=== PATIENT | male | born 1965 | race Two or more races ===

== ENCOUNTER → 2016-04-12 | Outpatient (CLI) | payer OTHER ==
[~2016-04-12] MED LIST: NO HOME MEDS; PHENERGAN25 MG PO
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
== END | disposition home or self-care (01) ==
LOC: CRAD 17:26
DX: M54.89 Other dorsalgia (principal); M51.36 Other intervertebral disc degeneration, lumbar region
CPT/HCPCS: 72050; 72110

== ENCOUNTER → 2016-04-28 | Outpatient (CLI) | payer OTHER ==
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
== END | disposition home or self-care (01) ==
LOC: CCAT 13:06
DX: S46.919D Strain of unspecified muscle, fascia and tendon at shoulder and upper arm level, unspecified arm, subsequent encounter (principal); M50.21 Other cervical disc displacement, high cervical region; M47.892 Other spondylosis, cervical region; M51.86 Other intervertebral disc disorders, lumbar region; M48.06 Spinal stenosis, lumbar region
CPT/HCPCS: 72125; 72131

== ENCOUNTER 2016-09-13 21:24 | Emergency (ER) | payer OTHER ==
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
== END 2016-09-13 23:30 | disposition home or self-care (01) ==
LOC: CFTX 21:24 → CED 21:24 → CFTX 22:18
DX: S46.912A Strain of unspecified muscle, fascia and tendon at shoulder and upper arm level, left arm, initial encounter (principal); M54.42 Lumbago with sciatica, left side; Z90.49 Acquired absence of other specified parts of digestive tract; F17.210 Nicotine dependence, cigarettes, uncomplicated; X50.0XXA Overexertion from strenuous movement or load, initial encounter
CPT/HCPCS: 72100; 73030; 96372; 99283; J1885